=== PATIENT | male | born 1940 | race Caucasian/White ===

== ENCOUNTER 2017-08-28 09:58 | Inpatient (IN) | payer BC ==
--- NOTE | 2017-08-28 10:10 | PDOC ---
History of Present Illness - General Stated Complaint: FALL Time Seen by Provider: 08/28/17 10:10 - History of Present Illness Initial Comments: 77 year old male with history of HLD presenting with episode of lightheadedness / near syncope and fall. States that he has had cold like symptoms for the past two days with occasionally productive cough occasional nausea, NBNB vomiting, and NB diarrhea. States that he felt nauseous this morning at approximately 9: 00 AM and went to the bathroom then felt very lightheaded while leaning over the sink. His came into the bathroom and witnessed him stoop further over the sink and then fall back slowly to the floor and bump his head. The patient believes that he did not hit his head. They both deny loss of consciousness and he did get up very quickly after falling without difficulty. He is not complaining of any neck pain, head pain, or focal neurological deficit. He was very diaphoretic while falling. His mom does have some heart problem, and he has a very remote history of smoking with 1 drink per day alcohol usage. Denies fevers, chills, SOB, chest pain, back pain, visual symptoms, focal neuro deficit , similar previous episodes, or sick contacts. 08/28/17 10:34 Past History - Past Medical History Allergies/Adverse Reactions: Allergies Allergy/AdvReac Type Severity Reaction Status Date / Time No Known Allergies Allergy Verified 08/28/17 10:18 Home Medications: Ambulatory Orders Unobtainable [Unobtainable] 08/28/17 Review of Systems - Review of Systems Constitutional: No: Chills, Diaphoresis, Fever HEENTM: No: Blurred Vision Respiratory: Yes: Cough. No: Orthopnea, Shortness of Breath, Stridor, Wheezing Cardiac (ROS): No: Chest Pain, Edema, Irregular Heart Rate, Chest Tightness ABD/GI: Yes: Diarrhea, Nausea, Vomiting. No: Constipated : No: Burning, Dysuria Integumentary: No: Change in Color, Flushing, Lesions, Lumps Neurological: Yes: Weakness, Dizziness. No: Headache, Numbness, Paresthesia, Tingling, Tremors Psychiatric: No: Anxiety, Depression *Physical Exam - Physical Exam General Appearance: Yes: Nourished, Appropriately Dressed. No: Apparent Distress HEENT: positive: EOMI, ANOOP, Normal Voice, Symmetrical, TMs Normal. negative: Normal ENT Inspection (mucous membrane slightly dry) Neck: positive: Trachea midline, Normal Thyroid, Supple. negative: Tender, Rigid Respiratory/Chest: positive: Lungs Clear, Normal Breath Sounds. negative: Chest Tender, Respiratory Distress, Accessory Muscle Use Cardiovascular: positive: Regular Rhythm, Regular Rate Gastrointestinal/Abdominal: positive: Normal Bowel Sounds, Flat, Soft. negative : Tender Musculoskeletal: positive: Normal Inspection Extremity: positive: Normal Capillary Refill, Normal Inspection, Normal Range of Motion Integumentary: positive: Normal Color, Dry, Warm Neurologic: positive: parks worker II-XII NML intact, Fully Oriented, Alert, Normal Mood/ Affect, Motor Strength 5/5, Respond to painful stimul, Responsive, Finger to Nose, Other (Neuro exam WNL including cerebellar signs and gait.). negative: Facial Droop, Numbness, Sensory Deficit, Disoriented ED Treatment Course - LABORATORY CBC & Chemistry Diagram: 08/28/17 10:44 08/28/17 10:44 Medical Decision Making - Medical Decision Making 77 year old male presenting with nausea, vomiting, and diarrhea and episode of lightheadedness with fall. CT head negative and labs significant for pancreatitis. This is likely related to his hyperlipidemia. WBC WNL. Spoke to Dr. Vance regarding patient and he will accept the patient. Placed the patient NPO, on maintenance fluis, CT abdomen, RUQ ultrasound, sent LDH/ lipid panel, gave protonix and placed PRN order for Zofran. 08/28/17 13:31 *DC/Admit/Observation/Transfer Diagnosis at time of Disposition: Pancreatitis Qualifiers: Chronicity: acute Pancreatitis type: other Acute pancreatitis complication: no infection or necrosis Qualified Code(s): K85.80 - Other acute pancreatitis without necrosis or infection - Referrals Referrals: Sania Moore MD [Primary Care Provider] - - Patient Instructions - Post Discharge Activity
[2017-08-28] MEDS ORDERED: SODIUM CHLORIDE 0.9% 1000 ML INFUS.BAG IV ONE (10:30)
[2017-08-28 11:26] LABS: HEMATOCRIT 44.6 % (35.4-49); HEMOGLOBIN 14.7 GM/dL (11.7-16.9); MCH 30.4 pg (25.7-33.7); MEAN CELL VOLUME 91.9 fl (80-96); MEAN PLT VOLUME 9.3 fl (7.5-11.1); PLATELET COUNT 127 K/MM3 (134-434); RBC 4.85 M/mm3 (4.00-5.60); RDW 13.7 % (11.9-15.9); WHITE BLOOD COUNT 5.3 K/mm3 (4.0-10.0)
--- NOTE | 2017-08-28 11:34 | PDOC ---
Attending Attestation - Resident Resident Name: Jaret Fajardo - ED Attending Attestation I have performed the following: I have examined & evaluated the patient, The case was reviewed & discussed with the resident, I agree w/resident's findings & plan, Exceptions are as noted - HPI HPI: 08/28/17 11:49 "Patient is a 77 year old male with a significant past medical history of Hyperlipidemia who presents to the ED with complaints of lightheadedness and fall that occured this morning. Patient reports experiencing cold like symptoms for 2 days while at home. He reports experiencing nausea, vomiting and diarrhea for 2 days. Pt was in the bathroom this morning when he began to feel lightheaded, causing him to fall backwards. Pt denies LOC. Per patient's , patient hit back of head after falling. Patient was able to get up immediately and without assistance following fall. Pt states he feels back to baseline now and denies any complaints. Denies chest pain, Sob. Denes fevers, chills. Denies fevers,chills. Denies contact with sick individuals, out of state traveling. Denies loss of consciousness. Denies any other symptoms. Allergies: None Social history: No smoking. No alcohol. No illicit drugs. Surgical history: None PMD: Dr. Moore " - Physicial Exam PE: 08/28/17 11:52 "GENERAL: Awake, alert, and fully oriented, in no acute distress HEAD: No signs of trauma EYES: PERRLA, EOMI, sclera anicteric, conjunctiva clear ENT: Auricles normal inspection, hearing grossly normal, nares patent, oropharynx clear without exudates. Moist mucosa NECK: Nontender, no stepoffs, Normal ROM, supple, no lymphadenopathy, JVD, or masses LUNGS: Breath sounds equal, clear to auscultation bilaterally. No wheezes, and no crackles HEART: Regular rate and rhythm, normal S1 and S2, no murmurs, rubs or gallops ABDOMEN: Soft, nontender, normoactive bowel sounds. No guarding, no rebound. No masses EXTREMITIES: Normal range of motion, no edema. No clubbing or cyanosis. No cords, erythema, or tenderness NEUROLOGICAL: Cranial nerves II through XII intact. 5/5 strength and sensation in all extremities, Normal speech, normal gait SKIN: Warm, Dry, normal turgor, no rashes or lesions noted. " - Medical Decision Making 08/28/17 11:33 77 M with presyncopal episode and fall. Likely orthostatic vs vasovagal as episode occurred in bathroom in the context of vomiting + diarrhea. Pt with no chest pain or SOB or palpitations to suggest cardiac event. EKG wnl. - Labs, CXR, UA - CTH - IVF 08/28/17 15:30 Labs notable for elevated lipase. RUQ sono and CTAP ordered. Pt to be admitted. IVF ordered, NPO. Heart Score/ECG Review - ECG Impressions Comment:: 08/28/17 11:32 NSR, no BRANDON/STDs, no TWIs, axis wnl, intervals wnl
[2017-08-28] MEDS ORDERED: ACETAMINOPHEN 500 MG TABLET (FP) PO ONE (11:53)
[2017-08-28 12:23] LABS: ALBUMIN 3.5 g/dl (3.4-5.0); ANION GAP 7 (8-16); BILIRUBIN,TOTAL 0.6 mg/dL (0.2-1.0); BLOOD UREA NITROGEN 24 mg/dL (7-18); CALCIUM 8.2 mg/dL (8.5-10.1); CHLORIDE 101 mmol/L (98-107); CO2 29 mmol/L (21-32); CREATININE 1.2 mg/dL (0.7-1.3); GLUCOSE,RANDOM 114 mg/dL (74-106); SGPT/ALT 19 U/L (12-78); SODIUM 137 mmol/L (136-145); TOT PROT 6.6 g/dl (6.4-8.2)
[2017-08-28 12:26] LABS: ALK PHOS 48 U/L (45-117); LIPASE 1344 U/L (73-393)
[2017-08-28 12:27] LABS: POTASSIUM 4.8 mmol/L (3.5-5.1); SGOT/AST 30 U/L (15-37)
[2017-08-28] MEDS ORDERED: ACETAMINOPHEN 325 MG TABLET (FP) ONE (12:50)
[2017-08-28] MEDS ORDERED: ONDANSETRON 4 MG/2 ML VIAL IVPUSH PRN (13:28)
[2017-08-28] MEDS ORDERED: PANTOPRAZOLE SODIUM 40 MG VIAL IVPUSH ONE (13:28)
[2017-08-28] MEDS ORDERED: SODIUM CHLORIDE 1,000 ML IV SCH (13:30)
[2017-08-28 13:31] LABS: URINE APPEARANCE CLEAR; URINE BILIRUBIN NEGATIVE (NEGATIVE); URINE BLOOD NEGATIVE (NEGATIVE); URINE COLOR LTYELLOW; URINE GLUCOSE (UA) NEGATIVE (NEGATIVE); URINE KETONE TRACE (NEGATIVE); URINE LEUK ESTERASE NEGATIVE (NEGATIVE); URINE NITRITE NEGATIVE (NEGATIVE); URINE PROTEIN NEGATIVE (NEGATIVE); URINE UROBILINOGEN NEGATIVE mg/dL (0.2-1.0)
[2017-08-28] MEDS ORDERED: PANTOPRAZOLE SODIUM 40 MG VIAL ONE (13:34)
[2017-08-28 14:03] LABS: CHOLESTEROL 150 mg/dL (50-200); HDL CHOLESTEROL 49 mg/dL (40-60); LDL CHOLESTEROL (ONLY SJRH) 95 mg/dL (5-100); TRIGLYCERIDES 65 mg/dL (35-160)
[2017-08-28 14:12] LABS: LDH 421 U/L (87-241)
--- NOTE | 2017-08-28 17:05 | HP ---
Admitting History and Physical - Primary Care Physician PCP: Dr Joe Mandujano - Admission History of Present Illness: 77 year old male with history of HLD presenting with episode of lightheadedness / near syncope and fall. States that he has had cold like symptoms for the past two days with occasionally productive cough occasional nausea, NBNB vomiting, and NB diarrhea. States that he felt nauseous this morning at approximately 9: 00 AM and went to the bathroom then felt very lightheaded while leaning over the sink. His came into the bathroom and witnessed him stoop further over the sink and then fall back slowly to the floor and bump his head. The patient believes that he did not hit his head. They both deny loss of consciousness and he did get up very quickly after falling without difficulty. He is not complaining of any neck pain, head pain, or focal neurological deficit. He was very diaphoretic while falling. His mom does have some heart problem, and he has a very remote history of smoking with 1 drink per day alcohol usage. Denies fevers, chills, SOB, chest pain, back pain, visual symptoms, focal neuro deficit , similar previous episodes, or sick contacts. - Smoking History Smoking history: Former smoker Have you smoked in the past 12 months: No - Alcohol/Substance Use Hx Alcohol Use: No Home Medications - Allergies Allergies/Adverse Reactions: Allergies Allergy/AdvReac Type Severity Reaction Status Date / Time No Known Allergies Allergy Verified 08/28/17 10:18 - Home Medications Home Medications: Ambulatory Orders Unobtainable [Unobtainable] 08/28/17 Physical Examination Vital Signs: Vital Signs Temperature 98.2 F 08/28/17 10:19 Pulse Rate 63 08/28/17 10:19 Respiratory Rate 16 08/28/17 10:19 Blood Pressure 134/84 08/28/17 10:19 O2 Sat by Pulse Oximetry (%) 97 08/28/17 10:19 Labs: CBC, BMP 08/28/17 10:44 08/28/17 10:44
[2017-08-28] MEDS ORDERED: DEXTROSE 5%-0.45% SALINE 1,000 ML IV SCH (17:15)
[2017-08-28] MEDS ORDERED: D5-1/2NS+10 MEQ KCL - 10 MEQ/1,000 ML INFUS.BAG IV SCH (17:15)
[2017-08-28] MEDS: PANTOPRAZOLE SODIUM 40 MG VIAL IVPUSH SCH (22:23)
[2017-08-28] MEDS ORDERED: ACETAMINOPHEN 325 MG TABLET (FP) PO PRN (22:24)
[2017-08-28] MEDS: D5-1/2NS+20 MEQ KCL - 20 MEQ/1,000 ML INFUS.BAG IV SCH (22:35)
[2017-08-29 02:07] VITALS: BMI 27.6
[2017-08-29 07:37] LABS: BASO % 0.5 % (0-2.0); EOS % 4.3 % (0-4.5); HEMATOCRIT 40.3 % (35.4-49); HEMOGLOBIN 13.7 GM/dL (11.7-16.9); LYMPH % 42.8 % (8-40); MCH 30.8 pg (25.7-33.7); MCHC 33.9 g/dl (32.0-35.9); MEAN CELL VOLUME 90.9 fl (80-96); MEAN PLT VOLUME 9.4 fl (7.5-11.1); MONO % 12.2 % (3.8-10.2); NEUT % 40.2 % (42.8-82.8); PLATELET COUNT 120 K/MM3 (134-434); RBC 4.43 M/mm3 (4.00-5.60); RDW 13.3 % (11.9-15.9); WHITE BLOOD COUNT 3.9 K/mm3 (4.0-10.0)
[2017-08-29 07:54] LABS: AMYLASE 83 U/L (25-115)
[2017-08-29 07:55] LABS: ANION GAP 7 (8-16); BLOOD UREA NITROGEN 19 mg/dL (7-18); CALCIUM 7.6 mg/dL (8.5-10.1); CHLORIDE 105 mmol/L (98-107); CO2 26 mmol/L (21-32); GLUCOSE,RANDOM 113 mg/dL (74-106); MAGNESIUM 1.9 mg/dL (1.8-2.4); POTASSIUM 4.1 mmol/L (3.5-5.1); SODIUM 138 mmol/L (136-145)
[2017-08-29 07:56] LABS: CREATININE 1.1 mg/dL (0.7-1.3); LIPASE 287 U/L (73-393)
[2017-08-29] MEDS: HEPARIN NA (PORCINE) 5,000 UNITS/ML 1ML VIAL SQ SCH ×2 (09:33→23:00)
[2017-08-29] MEDS: PANTOPRAZOLE SODIUM 40 MG VIAL IVPUSH SCH ×2 (09:33→23:00)
[2017-08-29] MEDS ORDERED: PNEUMOC 13-VAL CONJ-DIP CRM/PF 0.5 ML DISP.SYRIN IM ONE (10:00)
--- NOTE | 2017-08-29 12:21 | EKG ---
Test Reason : Blood Pressure : / mmHG Vent. Rate : 067 BPM Atrial Rate : 067 BPM P-R Int : 148 ms QRS Dur : 100 ms QT Int : 422 ms P-R-T Axes : 040 011 035 degrees QTc Int : 445 ms NORMAL SINUS RHYTHM INCOMPLETE RIGHT BUNDLE BRANCH BLOCK BORDERLINE ECG NO PREVIOUS ECGS AVAILABLE Confirmed by MD GIOVANNI, MICHELE (2012) on 08/29/2017 12:21:00 PM Referred By: Confirmed By:MICHELE DAVILA MD
--- NOTE | 2017-08-29 14:15 | PN ---
Progress Note, Physician - Current Medication List Current Medications: Active Medications Acetaminophen (Tylenol -) 650 mg PO Q4H PRN PRN Reason: FEVER Heparin Sodium (Porcine) (Heparin -) 5,000 unit SQ BID [facility] Last Admin: 08/29/17 09:33 Dose: 5,000 unit Potassium Chloride/Dextrose/Sod Cl (D5-1/2ns+20 Meq Kcl -) 20 meq in 1,000 mls @ 83 mls/hr IV ASDIR [facility] Last Admin: 08/28/17 22:35 Dose: 83 mls/hr Ondansetron HCl (Zofran Injection) 4 mg IVPUSH Q4H PRN PRN Reason: NAUSEA AND/OR VOMITING Pantoprazole Sodium (Protonix Iv) 40 mg IVPUSH BID [facility] Last Admin: 08/29/17 09:33 Dose: 40 mg - Objective Vital Signs: Vital Signs Temperature 98.3 F 08/29/17 10:00 Pulse Rate 57 L 08/29/17 10:00 Respiratory Rate 18 08/29/17 10:00 Blood Pressure 139/83 08/29/17 10:00 O2 Sat by Pulse Oximetry (%) 97 08/29/17 09:00 Labs: CBC, BMP 08/29/17 06:00 08/29/17 06:00
[2017-08-29] MEDS: D5-1/2NS+20 MEQ KCL - 20 MEQ/1,000 ML INFUS.BAG IV SCH (23:14)
[2017-08-30 07:46] LABS: BASO % 0.6 % (0-2.0); EOS % 4.2 % (0-4.5); HEMOGLOBIN 13.7 GM/dL (11.7-16.9); LYMPH % 31.3 % (8-40); MCH 30.1 pg (25.7-33.7); MCHC 33.3 g/dl (32.0-35.9); MEAN CELL VOLUME 90.3 fl (80-96); MEAN PLT VOLUME 9.2 fl (7.5-11.1); MONO % 8.4 % (3.8-10.2); NEUT % 55.5 % (42.8-82.8); PLATELET COUNT 124 K/MM3 (134-434); RBC 4.54 M/mm3 (4.00-5.60); RDW 13.5 % (11.9-15.9); WHITE BLOOD COUNT 5.7 K/mm3 (4.0-10.0)
[2017-08-30 08:05] LABS: AMYLASE 97 U/L (25-115)
[2017-08-30 08:13] LABS: CHLORIDE 103 mmol/L (98-107); SODIUM 138 mmol/L (136-145)
[2017-08-30 08:18] LABS: LIPASE 382 U/L (73-393)
[2017-08-30 08:27] LABS: ANION GAP 10 (8-16); BLOOD UREA NITROGEN 17 mg/dL (7-18); CALCIUM 8.2 mg/dL (8.5-10.1); CO2 25 mmol/L (21-32); GLUCOSE,RANDOM 104 mg/dL (74-106)
[2017-08-30] MEDS: HEPARIN NA (PORCINE) 5,000 UNITS/ML 1ML VIAL SQ SCH ×2 (09:48→22:09)
[2017-08-30] MEDS: PANTOPRAZOLE SODIUM 40 MG VIAL IVPUSH SCH (09:48)
[2017-08-30] MEDS: D5-1/2NS+20 MEQ KCL - 20 MEQ/1,000 ML INFUS.BAG IV SCH (15:28)
--- NOTE | 2017-08-30 16:09 | PN ---
Progress Note, Physician - Current Medication List Current Medications: Active Medications Acetaminophen (Tylenol -) 650 mg PO Q4H PRN PRN Reason: FEVER Heparin Sodium (Porcine) (Heparin -) 5,000 unit SQ BID [facility] Last Admin: 08/30/17 09:48 Dose: 5,000 unit Potassium Chloride/Dextrose/Sod Cl (D5-1/2ns+20 Meq Kcl -) 20 meq in 1,000 mls @ 83 mls/hr IV ASDIR [facility] Last Admin: 08/30/17 15:28 Dose: 83 mls/hr Ondansetron HCl (Zofran Injection) 4 mg IVPUSH Q4H PRN PRN Reason: NAUSEA AND/OR VOMITING Pantoprazole Sodium (Protonix Iv) 40 mg IVPUSH BID [facility] Last Admin: 08/30/17 09:48 Dose: 40 mg - Objective Vital Signs: Vital Signs Temperature 98.7 F 08/30/17 15:22 Pulse Rate 62 08/30/17 15:22 Respiratory Rate 22 08/30/17 15:22 Blood Pressure 131/72 08/30/17 15:22 O2 Sat by Pulse Oximetry (%) 97 08/30/17 09:00 Labs: CBC, BMP 08/30/17 06:00 08/30/17 06:00
--- NOTE | 2017-08-30 16:42 | CON.GI ---
Consult Consult Specialty:: Gastroenterology Referred by:: Dr. Mandujano Reason for Consultation:: Pancreatitis - History of Present Illness Chief Complaint: near syncope while attempting to vomit History of Present Illness: 77M developed a near syncopal spell while attempting to vomit on 08/28/17. He denies abdominal or back pain. No fever. No chest pain. He has an elevated lipase on admission and CT suggesting a focus of pancreatitis. He denies any past h/o pancreatitis. He drinks wine only 1-2 times a month. He denies any preceding weight loss or loss of appetite. He has had colon polyps removed in two occasions by my associate Dr Aj Gonzalez, the last about 4 years ago. He denies any ho/ ulcer disease liver disease or pancreatitis. - History Source History Provided By: Patient Limitations to Obtaining History: No Limitations - Past Medical History Cardio/Vascular: Yes: Hyperlipdemia Gastrointestinal: Yes: Other (colon polyps) Renal/: Yes: Renal Calculi (required cystoscopic extraction) Musculoskeletal: Yes: Other (lumbar disc disease on CT) - Past Surgical History Past Surgical History: Yes: Hernia Repair (bilateral inguinal hernia repairs) - Alcohol/Substance Use Hx Alcohol Use: Yes (rare) - Smoking History Smoking history: Former smoker Have you smoked in the past 12 months: No If you are a former smoker, when did you quit?: 1984 - Social History Usual Living Arrangement: With Spouse ADL: Independent 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 (year[place] age 27 History of Recent Travel: No Home Medications - Allergies Allergies/Adverse Reactions: Allergies Allergy/AdvReac Type Severity Reaction Status Date / Time No Known Allergies Allergy Verified 08/28/17 10:18 - Home Medications Home Medications: Ambulatory Orders Unobtainable [Unobtainable] 08/28/17 Family Disease History - Family Disease History Family Disease History: Other: Father (lived to 90), Mother (liver to 93) Review of Systems - Review of Systems Constitutional: reports: No Symptoms Eyes: reports: No Symptoms HENT: reports: No Symptoms Neck: reports: No Symptoms Cardiovascular: reports: No Symptoms Respiratory: reports: No Symptoms Gastrointestinal: reports: No Symptoms Genitourinary: reports: No Symptoms Breasts: reports: No Symptoms Reported Musculoskeletal: reports: No Symptoms Integumentary: reports: No Symptoms Neurological: reports: No Symptoms Hematology/Lymphatic: reports: No Symptoms Physical Exam-GI Vital Signs: Vital Signs Temperature 98.7 F 08/30/17 15:22 Pulse Rate 62 08/30/17 15:22 Respiratory Rate 22 08/30/17 15:22 Blood Pressure 131/72 08/30/17 15:22 O2 Sat by Pulse Oximetry (%) 97 08/30/17 09:00 CBC,CMP WBC 5.7 K/mm3 (4.0-10.0) D 08/30/17 06:00 RBC 4.54 M/mm3 (4.00-5.60) 08/30/17 06:00 Hgb 13.7 GM/dL (11.7-16.9) 08/30/17 06:00 Hct 41.0 % (35.4-49) 08/30/17 06:00 MCV 90.3 fl (80-96) 08/30/17 06:00 MCH 30.1 pg (25.7-33.7) 08/30/17 06:00 MCHC 33.3 g/dl (32.0-35.9) 08/30/17 06:00 RDW 13.5 % (11.9-15.9) 08/30/17 06:00 Plt Count 124 K/MM3 (134-434) L 08/30/17 06:00 MPV 9.2 fl (7.5-11.1) 08/30/17 06:00 Neutrophils % 55.5 % (42.8-82.8) D 08/30/17 06:00 Lymphocytes % 31.3 % (8-40) D 08/30/17 06:00 Monocytes % 8.4 % (3.8-10.2) 08/30/17 06:00 Eosinophils % 4.2 % (0-4.5) 08/30/17 06:00 Basophils % 0.6 % (0-2.0) 08/30/17 06:00 Sodium 138 mmol/L (136-145) 08/30/17 06:00 Potassium 4.0 mmol/L (3.5-5.1) 08/30/17 06:00 Chloride 103 mmol/L (98-107) 08/30/17 06:00 Carbon Dioxide 25 mmol/L (21-32) 08/30/17 06:00 Anion Gap 10 (8-16) 08/30/17 06:00 BUN 17 mg/dL (7-18) 08/30/17 06:00 Creatinine 1.0 mg/dL (0.7-1.3) 08/30/17 06:00 Creat Clearance w eGFR 58.71 (>60) 08/28/17 10:44 Random Glucose 104 mg/dL (74-106) 08/30/17 06:00 Calcium 8.2 mg/dL (8.5-10.1) L 08/30/17 06:00 Magnesium 1.9 mg/dL (1.8-2.4) 08/29/17 06:00 Total Bilirubin 0.6 mg/dL (0.2-1.0) 08/28/17 10:44 AST 30 U/L (15-37) 08/28/17 10:44 ALT 19 U/L (12-78) 08/28/17 10:44 Alkaline Phosphatase 48 U/L (45-117) 08/28/17 10:44 LD Total 421 U/L (87-241) H 08/28/17 10:44 Creatine Kinase 191 IU/L (39-308) 08/28/17 10:44 Creatine Kinase Index 0.5 % (0.0-5.0) 08/28/17 10:44 CK-MB (CK-2) 1.080 ng/mL (0.5-3.6) 08/28/17 10:44 Troponin I < 0.02 ng/ml (0.00-0.05) 08/28/17 10:44 B-Natriuretic Peptide 58.40 pg/ml (5-450) 08/29/17 06:00 Total Protein 6.6 g/dl (6.4-8.2) 08/28/17 10:44 Albumin 3.5 g/dl (3.4-5.0) 08/28/17 10:44 Triglycerides 65 mg/dL (35-160) 08/28/17 10:44 Cholesterol 150 mg/dL (50-200) 08/28/17 10:44 Total LDL Cholesterol 95 mg/dL (5-100) 08/28/17 10:44 HDL Cholesterol 49 mg/dL (40-60) 01/26/18 10:44 Total Amylase 97 U/L (25-115) 08/30/17 06:00 Lipase 382 U/L (73-393) 08/30/17 06:00 Current Medications Generic Name Dose Route Start Last Admin Trade Name Frearturo PRN Reason Stop Dose Admin Acetaminophen 650 mg 08/28/17 22:24 Tylenol - PO Q4H PRN FEVER Heparin Sodium (Porcine) 5,000 unit 08/29/17 10:00 08/30/17 09:48 Heparin - SQ 5,000 unit BID [facility] Administration Potassium Chloride/Dextrose/Sod Cl 20 meq in 1,000 mls @ 83 mls/hr 08/28/17 22 :30 08/30/17 15:28 D5-1/2ns+20 Meq Kcl - IV 83 mls/hr ASDIR [facility] Administration Ondansetron HCl 4 mg 08/28/17 13:28 Zofran Injection IVPUSH Q4H PRN NAUSEA AND/OR VOMITING Pantoprazole Sodium 40 mg 08/28/17 22:00 08/30/17 09:48 Protonix Iv IVPUSH 40 mg BID [facility] Administration Constitutional: Yes: No Distress Eyes: Yes: Conjunctiva Clear HENT: Yes: Atraumatic Neck: Yes: Supple Cardiovascular: Yes: Regular Rate and Rhythm Respiratory: Yes: CTA Bilaterally Gastrointestinal Inspection: Yes: Scars (healed RIH and LIH incisions) ...Auscultate: Yes: Normoactive Bowel Sounds ...Palpate: Yes: Soft, Other (nontender) ...Rectal Exam: Yes: Guaiac Negative, Other (2+ prostate) Genitourinary: Yes: Other (no hernias, normal testicles) Extremities: Yes: WNL Edema: No Peripheral Pulses WNL: Yes Neurological: Yes: Alert, Oriented Labs: CBC, BMP 08/30/17 06:00 08/30/17 06:00 Laboratory Tests 08/28/17 08/29/17 08/30/17 10:44 06:00 06:00 Total Amylase 83 97 Lipase 1344 H 287 382 Imaging - Results Cat Scan: Report Reviewed (Franklyn Elaine Name: [facility] DEPARTMENT OF RADIOLOGY Phys: Jaret Fajardo RESIDENT : 1940 Age: 77 Sex : M [facility] Acct: [id number] Loc: [id number] Exam Date: 08/28/17 Status: [place] [address] Unit Number: [id number] EXAM#: TYPE/EXAM : RESULT: [id number] CT/ABDOMEN PELVIS CT W/O CONTR Abdomen and pelvis CT ( without contrast) Clinical information: pancreatitis evaluation Multiplanar imaging was performed. As requested no intravenous or enteric contrast was administered. No prior CT studies are available at this facility for direct comparison. There is equivocal minimal peripancreatic soft tissue stranding which could be on the basis of acute pancreatitis. Mild acute pancreatitis is frequently not demonstrable on CT. Clinical/ laboratory correlation is suggested. No peripancreatic fluid accumulation or collection is visualized. There is no gross dilatation of the main pancreatic duct. No pancreatic calcifications are visualized. As noted on sonography performed earlier the same date several punctate left hepatic lobe calcifications are seen. The gallbladder, spleen, adrenal glands and left kidney demonstrate no discrete noncontrast pathology. There is no definite biliary tract dilatation. A 2 mm nonobstructing right renal calculus is noted. Incidental note is made of several bilateral renal cortical cysts. No free intraperitoneal fluid, bowel obstruction or pneumoperitoneum is identified. Colonic diverticulosis is seen principally the sigmoid region without evidence of acute diverticulitis. The appendix cannot be definitely visualized. No indirect CT signs of acute appendicitis are noted. There is no aortic aneurysm. No definite lymphadenopathy is seen. Bilateral inguinal hernias containing fat only. Surgical clips are seen within the left inguinal region. No gross small bowel pathology is noted. Prostate enlargement which is probably at least moderate. Moderate to marked multilevel lumbar degenerative disc changes. Impression: There is equivocal minimal peripancreatic soft tissue stranding which could be on the basis of acute pancreatitis. 2 mm nonobstructing right renal calculus. Reported By: Hieu Bhat MD 08/28/172026 Technologist: Carlos Conde Transcribed Date/Time: 08/28/172026 Low Voltage Electrician: Hieu Bhat Printed Date/Time: By: Signed by: Hieu Bhat Signed on: 20:29) Problem List - Problems (1) Nephrolithiasis Code(s): N20.0 - CALCULUS OF KIDNEY (2) Colon polyps Code(s): K63.5 - POLYP OF COLON (3) History of inguinal hernia repair, bilateral Code(s): Z98.890 - OTHER SPECIFIED POSTPROCEDURAL STATES; Z87.19 - PERSONAL HISTORY OF OTHER DISEASES OF THE DIGESTIVE SYSTEM (4) Pancreatitis Assessment/Plan: Given the CT abnormality pancreatitis has been entertained but the lack of pain , persistent vomiting and rapid resolution argue against this diagnosis. A viral gastroenteritis would appear to be more likely cause for his vasovagal vomiting episode. Will therefore advance diet. If tolerated can I have no GI objections to discharge. I have advised followup with Dr Gonzalez for polyp surveillance. Code(s): K85.90 - ACUTE PANCREATITIS WITHOUT NECROSIS OR INFECTION, UNSP Qualifiers: Pancreatitis type: other Qualified Code(s): K85.80 - Other acute pancreatitis without necrosis or infection (5) Vasovagal episode Code(s): R55 - SYNCOPE AND COLLAPSE (6) Vasovagal near-syncope Code(s): R55 - SYNCOPE AND COLLAPSE (7) Gastroenteritis Code(s): K52.9 - NONINFECTIVE GASTROENTERITIS AND COLITIS, UNSPECIFIED
[2017-08-31] MEDS: D5-1/2NS+20 MEQ KCL - 20 MEQ/1,000 ML INFUS.BAG IV SCH (04:20)
[2017-08-31 07:53] LABS: BASO % 0.6 % (0-2.0); EOS % 6.6 % (0-4.5); HEMATOCRIT 40.9 % (35.4-49); HEMOGLOBIN 13.7 GM/dL (11.7-16.9); LYMPH % 41.9 % (8-40); MCH 30.5 pg (25.7-33.7); MCHC 33.5 g/dl (32.0-35.9); MEAN PLT VOLUME 9.4 fl (7.5-11.1); MONO % 8.4 % (3.8-10.2); NEUT % 42.5 % (42.8-82.8); PLATELET COUNT 130 K/MM3 (134-434); RDW 13.9 % (11.9-15.9); WHITE BLOOD COUNT 4.8 K/mm3 (4.0-10.0)
[2017-08-31 08:01] LABS: AMYLASE 97 U/L (25-115)
[2017-08-31 08:19] LABS: ANION GAP 9 (8-16); BLOOD UREA NITROGEN 20 mg/dL (7-18); CALCIUM 8.2 mg/dL (8.5-10.1); CHLORIDE 105 mmol/L (98-107); CO2 27 mmol/L (21-32); GLUCOSE,RANDOM 110 mg/dL (74-106); POTASSIUM 4.5 mmol/L (3.5-5.1); SODIUM 141 mmol/L (136-145)
[2017-08-31 08:20] LABS: CREATININE 1.1 mg/dL (0.7-1.3)
[2017-08-31 08:25] LABS: LIPASE 412 U/L (73-393)
--- NOTE | 2017-08-31 09:09 | CON.NEURO ---
Consult - Past Medical History Cardio/Vascular: Yes: Hyperlipdemia Gastrointestinal: Yes: Other (colon polyps) Renal/: Yes: Renal Calculi (required cystoscopic extraction) Musculoskeletal: Yes: Other (lumbar disc disease on CT) - Past Surgical History Past Surgical History: Yes: Hernia Repair (bilateral inguinal hernia repairs) - Alcohol/Substance Use Hx Alcohol Use: Yes (rare) - Smoking History Smoking history: Former smoker Have you smoked in the past 12 months: No If you are a former smoker, when did you quit?: 1984 - Social History Usual Living Arrangement: With Spouse ADL: Independent Occupation: [employer] History of Recent Travel: No Home Medications - Allergies Allergies/Adverse Reactions: Allergies Allergy/AdvReac Type Severity Reaction Status Date / Time No Known Allergies Allergy Verified 08/28/17 10:18 - Home Medications Home Medications: Ambulatory Orders Unobtainable [Unobtainable] 08/28/17 Family Disease History - Family Disease History Family Disease History: Other: Father (lived to 90), Mother (liver to 93) Physical Exam-Neuro Vital Signs: Vital Signs Temperature 97.8 F 08/31/17 07:57 Pulse Rate 52 L 08/31/17 07:57 Respiratory Rate 20 08/31/17 07:57 Blood Pressure 126/75 08/31/17 07:57 O2 Sat by Pulse Oximetry (%) 98 08/30/17 21:00 Labs: CBC, BMP 08/31/17 06:30 08/31/17 06:30 Assessment/Plan cc Episode of lightheadedness and Vomiting HPI 77 year old male no significant medical problem, except Hyperlipidemia. He had episode of vomiting and felt dizzy and did not pass out. There is no focal neurological symptoms, including headhace , dysphagia or dysrathria or diplopia, no wekaness or numbness. There is no seizures like activity. His Pancreatic enzyme found to be raised and being seen by GI for pancreatitis. PMH as above ROS,FH,SH reviewed in chart Neurological Examination Alert oriented x 3, speech is normal CN all intact , eomi, and pupils is reactive , no face asymmetry Motor is 5/5 in both upper and lower extremity sensation is normal CT head and Carotid ultrasound is normal Assessment- Episode of dizziness and Near Syncope. It seems to be vasovagal symptoms. Unlikley to be TIA, Vertigo, no Cerebellar signs, no evidence of epilepsy, or stroke Plan-- Continue current level of treatment - No Further Recommendation from Neurological Point of view Thanking you so much Gabe Barroso MD
[2017-08-31] MEDS ORDERED: PT OWN MED DRAWER 7, Y5N ONE (09:22)
[2017-08-31] MEDS: HEPARIN NA (PORCINE) 5,000 UNITS/ML 1ML VIAL SQ SCH (09:26)
[2017-08-31] MEDS ORDERED: PANTOPRAZOLE 40 MG TABLET (FP) PO SCH (10:00)
[2017-08-31 18:05] VITALS: BP 136/75; PULSE 54; TEMP 98.3
--- NOTE | 2017-08-31 18:45 | PN ---
Progress Note, Physician - Current Medication List Current Medications: Active Medications Acetaminophen (Tylenol -) 650 mg PO Q4H PRN PRN Reason: FEVER Heparin Sodium (Porcine) (Heparin -) 5,000 unit SQ BID [facility] Last Admin: 08/31/17 09:26 Dose: 5,000 unit Potassium Chloride/Dextrose/Sod Cl (D5-1/2ns+20 Meq Kcl -) 20 meq in 1,000 mls @ 83 mls/hr IV ASDIR [facility] Last Admin: 08/31/17 04:20 Dose: 83 mls/hr Ondansetron HCl (Zofran Injection) 4 mg IVPUSH Q4H PRN PRN Reason: NAUSEA AND/OR VOMITING Pantoprazole Sodium (Protonix -) 40 mg PO DAILY [facility] Last Admin: 08/31/17 09:26 Dose: 40 mg - Objective Vital Signs: Vital Signs Temperature 98.3 F 08/31/17 16:55 Pulse Rate 54 L 08/31/17 16:55 Respiratory Rate 20 08/31/17 16:55 Blood Pressure 136/75 08/31/17 16:55 O2 Sat by Pulse Oximetry (%) 98 08/30/17 21:00 Labs: CBC, BMP 08/31/17 06:30 08/31/17 06:30
--- NOTE | 2017-08-31 18:48 | DS ---
Physical Examination Vital Signs: Vital Signs Temperature 98.3 F 08/31/17 16:55 Pulse Rate 54 L 08/31/17 16:55 Respiratory Rate 20 08/31/17 16:55 Blood Pressure 136/75 08/31/17 16:55 O2 Sat by Pulse Oximetry (%) 98 08/30/17 21:00 Constitutional: Yes: Well Nourished Eyes: Yes: Conjunctiva Clear HENT: Yes: Atraumatic, Normocephalic Neck: Yes: Supple, Trachea Midline Cardiovascular: Yes: Regular Rate and Rhythm, S1, S2 Respiratory: Yes: Regular, CTA Bilaterally Gastrointestinal: Yes: Normal Bowel Sounds, Soft Musculoskeletal: Yes: Joint Stiffness Labs: CBC, BMP 08/31/17 06:30 08/31/17 06:30 Discharge Summary Reason For Visit: PANCREATITIS Current Active Problems Colon polyps (Acute) Gastroenteritis (Acute) History of inguinal hernia repair, bilateral (Acute) Nephrolithiasis (Acute) Pancreatitis (Acute) Vasovagal episode (Acute) Vasovagal near-syncope (Acute) Hospital Course: Pt was NPO IV fluids Pt sen By GI and Neurology alos Pt will FU with Me in one week - Instructions Referrals: Sania Moore MD [Primary Care Provider] - Disposition: HOME - Home Medications Comprehensive Discharge Medication List: Ambulatory Orders Lipitor 10 mg Po daily Pepsid 20 mg PO BID Fat free diet
== END 2017-08-31 19:38 | disposition home or self-care (01) | DRG 440 ==
LOC: JER 09:58 → JERBED 13:38 → J8W 20:16
PROVIDERS: ADMIT Internal Medicine; ATTEND Internal Medicine
DX: K85.90 Acute pancreatitis without necrosis or infection, unspecified (principal); E78.5 Hyperlipidemia, unspecified; R55 Syncope and collapse; K63.5 Polyp of colon; K52.9 Noninfective gastroenteritis and colitis, unspecified
CPT/HCPCS: 36415; 70450-TC; 71045-TC; 74176-TC; 76705-TC; 80048; 80053; 80061; 81003; 82150; 82550; 82553; 82787; 83615; 83690; 83721; 83735; 83880; 84484; 85025; 85027; 86140; 86301; 87086; 87804; 90670; 93005; 93010; 93306-TC; 93880-TC; 99285-25; J1644

== ENCOUNTER 2022-01-17 14:00 | Emergency (ER) | payer OTHER, MEDICARE ==
[2022-01-17 14:25] VITALS: BP 117/60; PULSE 66; TEMP 99.9; BMI 28.5
[2022-01-17] MEDS ORDERED: ACETAMINOPHEN 325 MG TABLET (FP) PO ONE (16:39)
[2022-01-17] MEDS ORDERED: ACETAMINOPHEN 325 MG TABLET (FP) ONE (16:40)
== END 2022-01-17 17:46 | disposition home or self-care (01) ==
LOC: JER 14:00
DX: U07.1 COVID-19 (principal)
CPT/HCPCS: 71046-TC-FY; 99284-25; C9803-CS; U0003; U0005

== ENCOUNTER 2022-12-04 04:10 | Day surgery (SDC) | payer OTHER, MEDICARE ==
[2022-12-03 12:10] VITALS: BMI 30.5
[2022-12-04 08:26] VITALS: PULSE 61
[2022-12-04 08:54] VITALS: BP 103/62; RESP 18; TEMP 98
== END 2022-12-04 08:55 | disposition home or self-care (01) ==
LOC: JASU-ENDO 04:10
PROVIDERS: ATTEND Internal Medicine Gastroenterology
PROC: 0DBL8ZX Excision of Transverse Colon, Via Natural or Artificial Opening Endoscopic, Diagnostic (ICD-10-PCS; 2022-12-04)
PROC: 0DBK8ZX Excision of Ascending Colon, Via Natural or Artificial Opening Endoscopic, Diagnostic (ICD-10-PCS; principal; 2022-12-04 08:00)
DX: Z12.11 Encounter for screening for malignant neoplasm of colon (principal); D12.2 Benign neoplasm of ascending colon; D12.3 Benign neoplasm of transverse colon; K57.30 Diverticulosis of large intestine without perforation or abscess without bleeding; Z86.010 Personal history of colon polyps
CPT/HCPCS: 88305-TC

== ENCOUNTER 2023-12-22 16:09 | Emergency (ER) | payer OTHER, MEDICARE ==
[2023-12-22 16:17] VITALS: BP 146/80; PULSE 63; RESP 16; TEMP 98.2; BMI 30.5
[2023-12-22] MEDS ORDERED: ACETAMINOPHEN INJECTION 100 ML IVPB ONE (17:28)
[2023-12-22 17:31] LABS: HEMATOCRIT 40.4 % (35.4-49); HEMOGLOBIN 14.2 GM/dL (11.7-16.9); MCH 31.5 pg (25.7-33.7); MCHC 35.1 g/dl (32.0-35.9); MEAN CELL VOLUME 89.7 fl (80-96); PLATELET COUNT 174 10^3/uL (134-434); WHITE BLOOD COUNT 8.3 K/mm3 (4.0-10.0)
[2023-12-22] MEDS: SODIUM CHLORIDE 0.9% 1000 ML INFUS.BAG IV ONE (17:34)
[2023-12-22] MEDS: ACETAMINOPHEN 1000 MG/100 ML BAG IVPB ONE (17:35)
[2023-12-22 17:50] LABS: CHLORIDE 106 mmol/L (98-107); SODIUM 137 mmol/L (136-145)
[2023-12-22 17:52] LABS: ALBUMIN 3.6 g/dl (3.4-5.0); BLOOD UREA NITROGEN 23.1 mg/dL (7-18); CALCIUM 8.9 mg/dL (8.5-10.1); CO2 25 mmol/L (21-32); GLUCOSE,RANDOM 79 mg/dL (74-106)
[2023-12-22 17:55] LABS: CREATININE 1.1 mg/dL (0.55-1.3); SGOT/AST 63 U/L (15-37)
[2023-12-22 17:57] LABS: BILIRUBIN,TOTAL 0.7 mg/dL (0.2-1); TOT PROT 6.8 g/dl (6.4-8.2)
[2023-12-22 17:58] LABS: ALK PHOS 54 U/L (45-117)
[2023-12-22 18:16] LABS: ANION GAP 6 mmol/L (4-13); POTASSIUM 6.5 mmol/L (3.5-5.1); SGPT/ALT 18 U/L (13-61)
[2023-12-22] MEDS ORDERED: DEXAMETHASONE SOD PHOSPHATE 10 MG/1 ML VIAL ONE (18:32)
[2023-12-22] MEDS: DEXAMETHASONE SOD PHOSPHATE 10 MG/1 ML VIAL IVPUSH ONE (18:33)
[2023-12-22 18:41] LABS: EPI CELLS 0 /uL (0-25.1); HYALINE CASTS 0 /uL (0-3.1); URINE APPEARANCE CLEAR; URINE BACTERIA 2 /uL (0-1359); URINE BILIRUBIN NEGATIVE (NEGATIVE); URINE COLOR YELLOW; URINE GLUCOSE (UA) NEGATIVE (NEGATIVE); URINE KETONE TRACE (NEGATIVE); URINE LEUK ESTERASE NEGATIVE (NEGATIVE); URINE NITRITE NEGATIVE (NEGATIVE); URINE PROTEIN NEGATIVE (NEGATIVE); URINE RBC 9 /uL (0-23.9); URINE UROBILINOGEN 0.2 mg/dL (0.2-1.0); URINE WBC 1 /uL (0-25.8)
[2023-12-22 20:56] LABS: POTASSIUM 4.1 mmol/L (3.5-5.1)
[2023-12-22 20:58] LABS: ALBUMIN 3.8 g/dl (3.4-5.0); BLOOD UREA NITROGEN 22.1 mg/dL (7-18); CALCIUM 8.3 mg/dL (8.5-10.1)
[2023-12-22 21:02] LABS: CREATININE 0.9 mg/dL (0.55-1.3)
[2023-12-22 21:03] LABS: BILIRUBIN,TOTAL 0.8 mg/dL (0.2-1); TOT PROT 6.3 g/dl (6.4-8.2)
[2023-12-22] MEDS ORDERED: LIDOCAINE 5% TOPICAL PATCH ONE (21:11)
[2023-12-22] MEDS: LIDOCAINE 5% TOPICAL PATCH TP ONE (21:31)
[2023-12-22] MEDS ORDERED: LIDOCAINE PATCH REMOVAL MC SCH (22:00)
== END 2023-12-22 21:32 | disposition home or self-care (01) ==
LOC: JER 16:09
PROC: 3E033NZ Introduction of Analgesics, Hypnotics, Sedatives into Peripheral Vein, Percutaneous Approach (ICD-10-PCS; principal; 2023-12-22)
PROC: 3E033GC Introduction of Other Therapeutic Substance into Peripheral Vein, Percutaneous Approach (ICD-10-PCS; 2023-12-22)
DX: M54.50 Low back pain, unspecified (principal); R10.9 Unspecified abdominal pain
CPT/HCPCS: 36415; 72131-TC; 74176-TC; 80053; 81003; 85027; 87086; 96374; 96375; 99284-25; J0131; J1100